=== PATIENT | female | born 1970 | race American Indian/Alaskan Native ===

== ENCOUNTER 2021-06-28 15:43 | Emergency (ER) | payer SELFPAY ==
[2021-06-28 19:18] LABS: Basophils # (Auto) 0.1 K/mm3 (0.0-0.1); Basophils % (Auto) 0.7 % (0.0-1.8); Eosinophils # (Auto) 0.1 K/mm3 (0.0-0.4); Eosinophils % (Auto) 0.6 % (0.0-4.3); Hematocrit 46.8 % (30.3-42.9); Hemoglobin 15.4 gm/dl (10.1-14.3); Lymphocytes # (Auto) 1.5 K/mm3 (1.2-5.4); Mean Corpuscular HGB Conc 33 % (30-34); Mean Corpuscular Volume 78 fl (79-97); Monocytes # (Auto) 1.6 K/mm3 (0.0-0.8); Monocytes % (Auto) 13.4 % (0.0-7.3); Platelet Count 311 K/mm3 (140-440); Red Blood Count 5.98 M/mm3 (3.65-5.03); Red Cell Distribution Width 16.3 % (13.2-15.2)
[2021-06-28 19:36] LABS: Albumin 4.3 g/dL (3.9-5); Blood Urea Nitrogen 10 mg/dL (7-17); Calcium 9.8 mg/dL (8.4-10.2); Hemolysis Index 10
[2021-06-28 19:40] LABS: BUN/Creatinine Ratio 33
[2021-06-28 19:49] LABS: Alanine Aminotransferase 3145 units/L (7-56)
--- NOTE | 2021-06-29 06:47 | Emergency Department Report ---
ED General Adult HPI - General Chief complaint: Recheck/Abnormal Lab/Rx Stated complaint: ABNORMAL LABS Time Seen by Provider: 06/29/21 06:20 Source: patient Mode of arrival: Ambulatory Limitations: No Limitations - History of Present Illness Initial comments: patient presents with complaints of yellowing of her eyes. Endorses decreased appetite. Denies abd pain, back pain, SOB, dizziness, LOC, alcohol use. - Related Data Home Medications Medication Instructions Recorded Confirmed Last Taken No Known Home Medications [No 06/29/21 06/29/21 Unknown Reported Home Medications] Allergies Allergy/AdvReac Type Severity Reaction Status Date / Time No Known Allergies Allergy Verified 06/29/21 11:17 ED Review of Systems ROS: Stated complaint: ABNORMAL LABS Other details as noted in HPI Comment: All other systems reviewed and negative Constitutional: denies: chills, fever ED Past Medical Hx - Past Medical History Previous Medical History?: No - Surgical History Past Surgical History?: No - Medications Home Medications: Home Medications Medication Instructions Recorded Confirmed Last Taken Type No Known Home Medications [No 06/29/21 06/29/21 Unknown History Reported Home Medications] ED Physical Exam - General Limitations: No Limitations General appearance: alert, in no apparent distress - Head Head exam: Present: atraumatic, normocephalic - Eye Eye exam: Present: PERRL, EOMI, scleral icterus - ENT ENT exam: Present: mucous membranes moist, other (airway patent) - Neck Neck exam: Present: other (supple; no JVD) - Respiratory Respiratory exam: Present: other (good air entry, nml I:E, CTAB, no use of JANET) - Cardiovascular Cardiovascular Exam: Present: regular rate. Absent: rubs, gallop - GI/Abdominal GI/Abdominal exam: Present: other (soft, non tender, non distended, normal BS) - Extremities Exam Extremities exam: Present: other (no LE edema; n on tender calves; neg Gracy's sign bilaterally) - Back Exam Back exam: Present: full ROM. Absent: tenderness - Neurological Exam Neurological exam: Present: alert, oriented X3, CN II-XII intact. Absent: motor sensory deficit - Skin Skin exam: Present: warm. Absent: rash ED Course Vital Signs 06/29/21 06/29/21 06/29/21 06:38 06:45 11:13 Temperature 98.5 F Pulse Rate 82 Respiratory 15 Rate Blood Pressure 181/87 [Left] O2 Sat by Pulse 100 99 99 Oximetry 06/29/21 11:16 Temperature 98.8 F Pulse Rate 75 Respiratory 17 Rate Blood Pressure 119/78 [Left] O2 Sat by Pulse 100 Oximetry ED Medical Decision Making - Lab Data Result diagrams: 06/29/21 10:21 06/28/21 18:51 Laboratory Tests 06/28/21 06/28/21 06/29/21 18:51 18:51 06:55 WBC 11.9 H RBC 5.98 H Hgb 15.4 H Hct 46.8 H MCV 78 L MCH 26 L MCHC 33 RDW 16.3 H Plt Count 311 Lymph % (Auto) 13.0 L Cannon % (Auto) 13.4 H Eos % (Auto) 0.6 Baso % (Auto) 0.7 Lymph # (Auto) 1.5 Cannon # (Auto) 1.6 H Eos # (Auto) 0.1 Baso # (Auto) 0.1 Add Manual Diff Total Counted Seg Neutrophils % 72.3 H Seg Neuts % (Manual) Band Neutrophils % Lymphocytes % (Manual) Reactive Lymphs % (Man) Monocytes % (Manual) Eosinophils % (Manual) Basophils % (Manual) Metamyelocytes % Myelocytes % Promyelocytes % Blast Cells % Nucleated RBC % Seg Neutrophils # 8.6 H Seg Neutrophils # Man Band Neutrophils # Lymphocytes # (Manual) Abs React Lymphs (Man) Monocytes # (Manual) Eosinophils # (Manual) Basophils # (Manual) Metamyelocytes # Myelocytes # Promyelocytes # Blast Cells # WBC Morphology Hypersegmented Neuts Hyposegmented Neuts Hypogranular Neuts Smudge Cells Toxic Granulation Toxic Vacuolation Dohle Bodies Pelger-Huet Anomaly Renaldo Rods Platelet Estimate Clumped Platelets Plt Clumps, EDTA Large Platelets Giant Platelets Platelet Satelliting Plt Morphology Comment RBC Morphology Dimorphic RBCs Polychromasia Hypochromasia Poikilocytosis Anisocytosis Microcytosis Macrocytosis Spherocytes Pappenheimer Bodies Sickle Cells Target Cells Tear Drop Cells Ovalocytes Helmet Cells Hill-Bement Bodies [place] Rings [place] Cells Bite Cells Crenated Cell Elliptocytes Acanthocytes (Spur) Rouleaux Hemoglobin C Crystals Schistocytes Malaria parasites Yoandy Bodies Hem Pathologist Commnt PT INR APTT Sodium 136 L Potassium 4.0 Chloride 96.3 L Carbon Dioxide 26 Anion Gap 18 BUN 10 Creatinine 0.3 L Estimated GFR > 60 BUN/Creatinine Ratio 33 Glucose 80 Calcium 9.8 Total Bilirubin 17.70 H Direct Bilirubin Indirect Bilirubin AST 2971 H ALT 3145 H Alkaline Phosphatase 343 H Ammonia Total Protein 7.0 Albumin 4.3 Albumin/Globulin Ratio 1.6 Acetaminophen 5.0 L Hepatitis A IgM Ab Hep Bs Antigen Hep B Core IgM Ab Hepatitis C Antibody 06/29/21 06/29/21 06/29/21 06:55 06:55 10:21 WBC RBC Hgb Hct MCV MCH MCHC RDW Plt Count Lymph % (Auto) Cannon % (Auto) Eos % (Auto) Baso % (Auto) Lymph # (Auto) Cannon # (Auto) Eos # (Auto) Baso # (Auto) Add Manual Diff Total Counted Seg Neutrophils % Seg Neuts % (Manual) Band Neutrophils % Lymphocytes % (Manual) Reactive Lymphs % (Man) Monocytes % (Manual) Eosinophils % (Manual) Basophils % (Manual) Metamyelocytes % Myelocytes % Promyelocytes % Blast Cells % Nucleated RBC % Seg Neutrophils # Seg Neutrophils # Man Band Neutrophils # Lymphocytes # (Manual) Abs React Lymphs (Man) Monocytes # (Manual) Eosinophils # (Manual) Basophils # (Manual) Metamyelocytes # Myelocytes # Promyelocytes # Blast Cells # WBC Morphology Hypersegmented Neuts Hyposegmented Neuts Hypogranular Neuts Smudge Cells Toxic Granulation Toxic Vacuolation Dohle Bodies Pelger-Huet Anomaly Renaldo Rods Platelet Estimate Clumped Platelets Plt Clumps, EDTA Large Platelets Giant Platelets Platelet Satelliting Plt Morphology Comment RBC Morphology Dimorphic RBCs Polychromasia Hypochromasia Poikilocytosis Anisocytosis Microcytosis Macrocytosis Spherocytes Pappenheimer Bodies Sickle Cells Target Cells Tear Drop Cells Ovalocytes Helmet Cells [place] Bodies [place] Rings [place] Cells Bite Cells Crenated Cell Elliptocytes Acanthocytes (Spur) Rouleaux Hemoglobin C Crystals Schistocytes Malaria parasites Yoandy Bodies Hem Pathologist Commnt PT 21.5 H 22.3 H INR 1.64 H 1.72 H APTT 35.2 37.4 H Sodium Potassium Chloride Carbon Dioxide Anion Gap BUN Creatinine Estimated GFR BUN/Creatinine Ratio Glucose Calcium Total Bilirubin Direct Bilirubin Indirect Bilirubin AST ALT Alkaline Phosphatase Ammonia Total Protein Albumin Albumin/Globulin Ratio Acetaminophen Hepatitis A IgM Ab Non-reactive Hep Bs Antigen Non-reactive Hep B Core IgM Ab Non-reactive Hepatitis C Antibody Non-reactive 06/29/21 06/29/21 06/29/21 10:21 10:21 10:21 WBC 11.1 H RBC 5.36 H Hgb 14.0 Hct 41.0 MCV 76 L MCH 26 L MCHC 34 RDW 16.4 H Plt Count 304 Lymph % (Auto) Cannon % (Auto) [employer] Machine Set Up Mechanic Eos % (Auto) Baso % (Auto) Lymph # (Auto) Cannon # (Auto) Eos # (Auto) Baso # (Auto) Add Manual Diff Complete Total Counted 100 Seg Neutrophils % Seg Neuts % (Manual) 78.0 H Band Neutrophils % 1.0 Lymphocytes % (Manual) 9.0 L Reactive Lymphs % (Man) 2.0 Monocytes % (Manual) 8.0 H Eosinophils % (Manual) 1.0 Basophils % (Manual) 1.0 Metamyelocytes % 0 Myelocytes % 0 Promyelocytes % 0 Blast Cells % 0 Nucleated RBC % Not Reportable Seg Neutrophils # Seg Neutrophils # Man 8.7 H Band Neutrophils # 0.1 Lymphocytes # (Manual) 1.0 L Abs React Lymphs (Man) 0.2 Monocytes # (Manual) 0.9 H Eosinophils # (Manual) 0.1 Basophils # (Manual) 0.1 Metamyelocytes # 0.0 Myelocytes # 0.0 Promyelocytes # 0.0 Blast Cells # 0.0 WBC Morphology Not Reportable Hypersegmented Neuts Not Reportable Hyposegmented Neuts Not Reportable Hypogranular Neuts Not Reportable Smudge Cells Not Reportable Toxic Granulation Not Reportable Toxic Vacuolation Not Reportable Dohle Bodies Not Reportable Pelger-Huet Anomaly Not Reportable Renaldo Rods Not Reportable Platelet Estimate Consistent w auto Clumped Platelets Not Reportable Plt Clumps, EDTA Not Reportable Large Platelets Rare Giant Platelets Not Reportable Platelet Satelliting Not Reportable Plt Morphology Comment Not Reportable RBC Morphology Not Reportable Dimorphic RBCs Not Reportable Polychromasia Not Reportable Hypochromasia Not Reportable Poikilocytosis Few Anisocytosis Not Reportable Microcytosis Not Reportable Macrocytosis Not Reportable Spherocytes Not Reportable Pappenheimer Bodies Not Reportable Sickle Cells Not Reportable Target Cells Rare Tear Drop Cells Not Reportable Ovalocytes Rare Helmet Cells Not Reportable Hill-Bement Bodies Not Reportable [place] Rings Not Reportable Rogelio Cells Rare Bite Cells Not Reportable Crenated Cell Not Reportable Elliptocytes Not Reportable Acanthocytes (Spur) Not Reportable Rouleaux Not Reportable Hemoglobin C Crystals Not Reportable Schistocytes Not Reportable Malaria parasites Not Reportable Yoandy Bodies Not Reportable Hem Pathologist Commnt No PT INR APTT Sodium Potassium Chloride Carbon Dioxide Anion Gap BUN Creatinine Estimated GFR BUN/Creatinine Ratio Glucose Calcium Total Bilirubin 16.10 H Direct Bilirubin 11.8 H Indirect Bilirubin 4.3 AST 2022 H ALT 2382 H Alkaline Phosphatase 303 H Ammonia 49.0 Total Protein 6.1 L Albumin 3.5 L Albumin/Globulin Ratio 1.3 Acetaminophen Hepatitis A IgM Ab Hep Bs Antigen Hep B Core IgM Ab Hepatitis C Antibody RUQ: wnl - Medical Decision Making Dr. Reyes (GI) consulted. He recommends transferring patient to liver transplant center Critical care attestation.: If time is entered above; I have spent that time in minutes in the direct care of this critically ill patient, excluding procedure time. ED Disposition Clinical Impression: Fulminant hepatitis Disposition: 02 SHORT TERM HOSPITAL Is pt being admited?: No Does the pt Need Aspirin: No Condition: Stable Time of Disposition: 14:30 (Patient transferred to Dr. Meyer (Hospitalist) @ [facility]. Sign out was given by me to the accepting physician. )
[2021-06-29 07:24] LABS: INR 1.64 (0.87-1.13)
[2021-06-29 07:25] LABS: Partial Thromboplastin Time 35.2 Sec. (24.2-36.6)
[2021-06-29 07:40] LABS: Hepatitis B Surface Antigen Non-Reactive (Negative); Hepatitis C Virus Antibody Non-Reactive (NonReactive)
--- NOTE | 2021-06-29 08:02 | Ultrasound Report ---
US abdomen limited INDICATION / CLINICAL INFORMATION: RUQ pain. COMPARISON: No relevant prior imaging study available. FINDINGS: PANCREAS: No significant abnormality. ABDOMINAL AORTA: No significant abnormality. IVC: No significant abnormality. LIVER: No significant abnormality. PORTAL VEIN: Normal hepatopedal blood flow in the main portal vein. GALLBLADDER: Gallbladder contraction limits evaluation. There is no cholelithiasis. Sonographic Katt y sign is negative. BILE DUCTS: Common bile duct measures 2 mm. No significant abnormality. RIGHT KIDNEY: No significant abnormality visualized. FREE FLUID: None. ADDITIONAL FINDINGS: None. IMPRESSION: 1. Gallbladder contraction limits evaluation. No cholelithiasis or other findings to suggest cholecys titis. 2. No significant abnormality of the right upper quadrant. Signer Name: Roland Zapata MD Signed: 06/29/2021 7:57 AM Workstation Name: [id number]
--- NOTE | 2021-06-29 10:29 | Event Note ---
Date: 06/29/21 called for this patient for acute hepatitis concerning that INR is elevated Rec stat repeat full set of labs and INR, if INR is trending up this is compatible with acute liver failure and would require emergency transplant evaluation in meantime also check dopplers of the hepatic vessels Acute hep panel neg Per ER no hx EtOh, new meds, tylenol, wild mushrooms, underlying liver disease Acute hep panel neg No clinical evidence for shock liver
[2021-06-29 10:33] LABS: Mean Corpuscular HGB Conc 34 % (30-34); Mean Corpuscular Volume 76 fl (79-97); Platelet Count 304 K/mm3 (140-440); Red Blood Count 5.36 M/mm3 (3.65-5.03); Red Cell Distribution Width 16.4 % (13.2-15.2)
[2021-06-29 10:44] LABS: INR 1.72 (0.87-1.13); Partial Thromboplastin Time 37.4 Sec. (24.2-36.6)
[2021-06-29 10:58] LABS: Albumin 3.5 g/dL (3.9-5)
[2021-06-29 11:20] LABS: Bilirubin,Direct 11.8 mg/dL (0-0.2)
[2021-06-29 11:26] LABS: Band Neutrophils # (Manual) 0.1 K/mm3; Total Cells Counted 100
[2021-06-29 11:28] LABS: Poikilocytosis Few
[2021-06-29 11:29] LABS: Burr Cells Rare; Large Platelets Rare; Ovalocytes Rare; Platelet Estimate Consistent w Auto; Target Cells Rare
[2021-06-29 16:54] VITALS: BP 119/65
== END 2021-06-29 16:54 | disposition short-term general hospital (02) ==
LOC: ED 15:43
DX: B19.9 Unspecified viral hepatitis without hepatic coma (principal)
CPT/HCPCS: 36415; 76705; 80053; 80074; 80076; 80320; 82140; 85007; 85025; 85610; 85730; 93005; 99285; G0480